=== PATIENT | female | born 1985 | race Caucasian/White ===

== ENCOUNTER 2018-10-18 06:39 | Day surgery (SDC) | payer MEDICARE, MEDICAID ==
[2018-10-09 17:54] LABS: BASOPHILS % (AUTO) 0.6 % (0-1); EOSINOPHILS # (AUTO) 0.3 X10'3 (0-0.9); EOSINOPHILS % (AUTO) 3.2 % (0-6); LYMPHOCYTES # (AUTO) 2.3 X10'3 (1.1-4.8); LYMPHOCYTES % (AUTO) 27.1 % (21-51); MEAN CORPUSCULAR HEMOGLOBIN 30.5 PG (27.0-31.0); MEAN CORPUSCULAR HGB CONC 34.2 g/dL (33.0-36.5); MEAN CORPUSCULAR VOLUME 89.1 FL (78-98); MEAN PLATELET VOLUME 7.7 FL (7.4-10.4); MONOCYTES # (AUTO) 0.5 X10'3 (0-0.9); MONOCYTES % (AUTO) 5.9 % (2-12); NEUTROPHILS # (AUTO) 5.4 X10'3 (1.8-7.7); NEUTROPHILS % (AUTO) 63.2 % (42-75); PRE OP HEMATOCRIT 39.6 % (35.0-45.0); PRE OP HEMOGLOBIN 13.5 g/dL (12.0-16.0); PRE OP PLATELET COUNT 345 X10'3 (140-440); RED BLOOD COUNT 4.44 X10'6 (4.20-5.60); RED CELL DISTRIBUTION WIDTH 13.5 % (11.5-14.5)
[2018-10-09 18:05] LABS: ALBUMIN/GLOBULIN RATIO 1.1 (1.1-1.5); ALKALINE PHOSPHATASE 65 IU/L (46-116); BLOOD UREA NITROGEN 16 MG/DL (7-18); BUN/CREATININE RATIO 16.5 (6.6-38.0); CALCIUM 9.2 MG/DL (8.5-10.1); CHLORIDE 103 MMOL/L (99-107); CREATININE 0.97 MG/DL (0.40-0.90); PRE OP ALT 42 U/L (30-65); PRE OP ANION GAP 6 (8-16); PRE OP AST 24 U/L (10-37); PRE OP BILIRUB, TOTAL 0.3 MG/DL (0.0-1.0); PRE OP GLUCOSE 90 MG/DL (70-104); PRE OP POTASSIUM 3.5 MMOL/L (3.4-5.1); PRE OP SODIUM 139 MMOL/L (135-145); TOTAL CARBON DIOXIDE 30.4 MMOL/L (24-32); TOTAL PROTEIN 7.8 G/DL (6.4-8.2); eGFR 67 ML/MIN
[2018-10-18] VITALS (9 sets, daily range): BP systolic 111–143; BP diastolic 69–97
[~2018-10-18] VITALS: Ht 172.7 cm; Wt 143.5 kg
[~2018-10-18 06:39] MED LIST: ACET-75 PO; BUPIVAcaine/PF 2.5mg/ml (0.25%) 10ml vial ONE; ESCI20TA PO; MAGN400C PO; POTASSIUM PO; ceFAZolin 2gm in dextrose, iso 100 ML IV ONE; famotidine 20mg tablet PO ONE; ringers solution, lacted 1,000 ML IV SCH
[2018-10-18] MEDS ORDERED: LIDOcaine 0.5% (5mg/ml) 50ml vial ONE (07:25)
[2018-10-18] MEDS ORDERED: midazolam 2 mg/2 ml injection ONE ×2 (08:11→08:18)
[2018-10-18] MEDS ORDERED: fentaNYL/PF 50MCG/1 ML 2ML syringe ONE (08:11)
[2018-10-18] MEDS ORDERED: ringers solution, lacted 1,000 ML IV SCH (08:38)
[2018-10-18] MEDS ORDERED: meperidine/PF 25mg/ml syringe IV PRN ×3 (08:40)
[2018-10-18] MEDS ORDERED: morphine 4 MG/ML inj SYRINge IV PRN ×2 (08:40)
[2018-10-18] MEDS ORDERED: ondansetron/PF 4mg/2ml inj IV PRN (08:40)
[2018-10-18] MEDS ORDERED: proCHLORperazine 10 MG/2 ml inj IV PRN (08:40)
--- NOTE | 2018-10-18 08:40 | NUR ---
Received from OR via BED, accompanied by Anesthesiologist DR GOEL and report given by Anesthesiolgist. PATIENT A&OX4, DENIES PAIN, V/S WNL, NEUROVASCULAR CHECKS INTACT, 20G PIV LUE, SCD ON, DRESSING TO RIGHT WRIST CDI ELEVATED WITH ICEBAG APPLIED.
[2018-10-18] MEDS ORDERED: ketorolac trometh. 30mg/ml inj. ONE (08:49)
[2018-10-18] MEDS ORDERED: propofol inj 20 ML IV ONE (08:49)
--- NOTE | 2018-10-18 09:50 | NUR ---
PATIENT A&OX4, DENIES PAIN, V/S WNL, NEUROVASCULAR CHECKS INTACT, 20G PIV LUE D/C, SCD OFF, DRESSING TO RIGHT WRIST CDI ELEVATED WITH ICEBAG APPLIED. I HAVE REVIEWED D/C INSTRUCTIONS WITH PATIENT AND FAMILY AND THEY HAVE VERBALIZED UNDERSTANDING. PATIENT D/C HOME WITH ALL BELONGINGS AND FAMILY GAVE TRANSPORT HOME.
== END 2018-10-18 09:50 | disposition home or self-care (01) ==
LOC: PAS 06:39
PROVIDERS: ATTEND Orthopaedic Surgery Hand Surgery
DX: G56.01 Carpal tunnel syndrome, right upper limb (principal); Z79.899 Other long term (current) drug therapy; Z88.8 Allergy status to other drugs, medicaments and biological substances; Z98.51 Tubal ligation status; Z98.890 Other specified postprocedural states; F17.210 Nicotine dependence, cigarettes, uncomplicated; F43.10 Post-traumatic stress disorder, unspecified
CPT/HCPCS: 29848; 36415; 80053; 85025; J0690; J1885; J2001; J2250; J2704; J3010; J3490; A6449; A7000; J7120

== ENCOUNTER 2020-10-13 08:08 | Day surgery (SDC) | payer MEDICARE, MEDICAID ==
[2020-10-06 14:48] LABS: CLARITY,URINE SLIGHTLY CLOUDY (Clear); COLOR,URINE YELLOW (Yellow); GLUCOSE, URINE NEGATIVE (Neg); KETONES,URINE NEGATIVE (Neg); LEUKOCYTE ESTERASE ,URINE SMALL (Neg); NITRITES, URINE NEGATIVE (Neg); OCCULT BLOOD,URINE NEGATIVE (Neg); PH,URINE 6.5 (4.8-8.0); PROTEIN,URINE NEGATIVE (Neg); UROBILINOGEN,URINE 0.2 E.U/dL (0.2-1.0)
[2020-10-06 14:53] LABS: BASOPHILS # (AUTO) 0.1 X10'3 (0-0.2); BASOPHILS % (AUTO) 0.8 % (0-1); EOSINOPHILS # (AUTO) 0.3 X10'3 (0-0.9); EOSINOPHILS % (AUTO) 3.4 % (0-6); LYMPHOCYTES # (AUTO) 2.3 X10'3 (1.1-4.8); LYMPHOCYTES % (AUTO) 28.3 % (21-51); MEAN CORPUSCULAR HEMOGLOBIN 30.2 PG (27.0-31.0); MEAN CORPUSCULAR HGB CONC 33.4 g/dL (33.0-36.5); MEAN CORPUSCULAR VOLUME 90.3 FL (78-98); MEAN PLATELET VOLUME 7.6 FL (7.4-10.4); MONOCYTES # (AUTO) 0.5 X10'3 (0-0.9); MONOCYTES % (AUTO) 6.6 % (2-12); NEUTROPHILS % (AUTO) 60.9 % (42-75); PRE OP HEMOGLOBIN 13.7 g/dL (12.0-16.0); PRE OP PLATELET COUNT 299 X10'3 (140-440); RED BLOOD COUNT 4.53 X10'6 (4.20-5.60)
[2020-10-06 14:55] LABS: UA COLLECTION TYPE CLN CATCH MIDSTREAM
[2020-10-06 14:57] LABS: BACTERIA,URINE FEW /HPF (Neg); MUCUS STRANDS MANY /LPF (Neg); RBC,URINE NONE SEEN /HPF (0-2); SQUAMOUS EPITHELIAL CELL,UR MANY /LPF (FEW)
[2020-10-06 14:59] LABS: ALBUMIN 3.6 G/DL (3.4-5.0); ALBUMIN/GLOBULIN RATIO 0.9 (1.1-1.5); ALKALINE PHOSPHATASE 72 IU/L (46-116); BLOOD UREA NITROGEN 14 MG/DL (7-18); BUN/CREATININE RATIO 14.9 (6.6-38.0); CALCIUM 9.2 MG/DL (8.5-10.1); CHLORIDE 106 MMOL/L (99-107); CREATININE 0.94 MG/DL (0.40-0.90); PRE OP ALT 48 U/L (30-65); PRE OP ANION GAP 8 (8-16); PRE OP AST 27 U/L (10-37); PRE OP BILIRUB, TOTAL 0.2 MG/DL (0.0-1.0); PRE OP GLUCOSE 128 MG/DL (70-104); PRE OP SODIUM 142 MMOL/L (135-145); TOTAL CARBON DIOXIDE 28.4 MMOL/L (24-32); TOTAL PROTEIN 7.4 G/DL (6.4-8.2); eGFR 68 ML/MIN
[~2020-10-13] VITALS: Ht 172.7 cm; Wt 153.0 kg
[2020-10-13] VITALS (13 sets, daily range): BP systolic 108–153; BP diastolic 69–98
[~2020-10-13 08:08] MED LIST changes: -ACET-75 PO; -BUPIVAcaine/PF 2.5mg/ml (0.25%) 10ml vial ONE; +LISI10TA27 PO; -MAGN400C PO; +MELO-100 PO; -POTASSIUM PO; +albuterol 2.5 MG/3 ML nebule NEB ONE; -ceFAZolin 2gm in dextrose, iso 100 ML IV ONE; +cefazolin/dext.iso 2gm/100ml IV ONE
[2020-10-13] MEDS ORDERED: morphine 2 MG/ML inj. syringe IV PRN ×2 (09:40→14:10)
[2020-10-13] MEDS ORDERED: meperidine/PF 25mg/ml syringe IV PRN ×4 (09:40→14:10)
[2020-10-13] MEDS ORDERED: proCHLORperazine 10 MG/2 ml inj IV PRN ×2 (09:40→14:10)
[2020-10-13] MEDS ORDERED: ringers solution, lacted 1,000 ML IV SCH ×2 (09:40→14:10)
[2020-10-13] MEDS ORDERED: ondansetron/PF 4mg/2ml inj IV PRN ×2 (09:40→14:10)
[2020-10-13] MEDS ORDERED: morphine 4 MG/ML inj SYRINge IV PRN ×2 (09:40→14:10)
[2020-10-13] MEDS ORDERED: BUPIVAcaine/PF 2.5mg/ml (0.25%) 10ml vial ONE (11:44)
[2020-10-13] MEDS ORDERED: sevoflurane 250ml liquid IH ONE (12:07)
[2020-10-13] MEDS ORDERED: fentaNYL /PF 50mcg/ml 5ml ampule ONE (12:11)
[2020-10-13] MEDS ORDERED: midazolam 1 mg/ML 2ml injection ONE (12:16)
[2020-10-13] MEDS ORDERED: ceFAZolin 1000mg inj ONE (12:30)
[2020-10-13] MEDS ORDERED: 0.9 % SODIUM CHLORIDE 10 ML VIAL ONE (12:48)
[2020-10-13] MEDS ORDERED: rocuronium 10mg/ml inj IV ONE ×2 (12:48→12:58)
[2020-10-13] MEDS ORDERED: LIDOcaine 2% (20mg/ml) 5ml vial ONE (12:48)
[2020-10-13] MEDS ORDERED: ePHEDrine 50MG/ML INJ. ONE (12:48)
[2020-10-13] MEDS ORDERED: propofol inj 20 ML IV ONE ×2 (12:48)
[2020-10-13] MEDS ORDERED: labetalol 20mg/4ml (5mg/ml) syringe IV ONE (13:17)
[2020-10-13] MEDS ORDERED: BUPIVACAINE liposomal/PF 13.3 MG/ML vial IM ONE (13:24)
[2020-10-13] MEDS ORDERED: BUPIVAcaine/PF 2.5 mg/ml (0.25%) 30ml vial ONE (13:24)
[2020-10-13] MEDS ORDERED: sugammadex 200mg/2ml injection IV ONE (13:25)
[2020-10-13] MEDS ORDERED: ondansetron/PF 4mg/2ml inj ONE (13:28)
[2020-10-13] MEDS ORDERED: dexamethasone sod phosphate 4mg/ml inj. ONE (13:28)
--- NOTE | 2020-10-13 13:57 | NUR ---
Received from OR via adriana, accompanied by Anesthesiologist Noah and report given by Anesthesiolgist. VS WNL, mask to 10L sats 99%, pt not yet responding to questions. Abdomen with 4 lap sites dermabonded. IVF LR at 100cc/hr to 20G left hand.
[2020-10-13] MEDS ORDERED: labetalol 20mg/4ml (5mg/ml) syringe IV PRN (14:10)
[2020-10-13] MEDS ORDERED: HYDROmorphone/PF 0.2 MG/ML SYRINGE IV PRN ×2 (14:10)
[2020-10-13] MEDS ORDERED: ketorolac trometh. 30mg/ml inj. IV ONE (14:10)
[2020-10-13] MEDS ORDERED: acetaminophen 1,000mg/100ml IV 100 ML IV PRN (14:10)
[2020-10-13] MEDS ORDERED: hydrALAZINE 20mg/ml inj. IV PRN (14:10)
[2020-10-13] MEDS ORDERED: oxyCODONE/APAP 5-325mg tablet PO ONE (15:15)
--- NOTE | 2020-10-13 16:17 | NUR ---
Pt discharged to vehicle by wheelchair without incident. IV DC'd, all belongings returned to patient including cell phone and ziplock of rings. Pt states she has all her belongings upon exit. Lap sites remain CDI and open to air. Pain remains tolerable at 4/10. Mother has picked up pain meds from pharmacy, pt and mother both understand DC isntructions including the need for frequent ambulation.
== END 2020-10-13 16:17 | disposition home or self-care (01) ==
LOC: PAS 08:08
PROVIDERS: ATTEND Surgery
DX: K43.6 Other and unspecified ventral hernia with obstruction, without gangrene (principal); Z20.822 Contact with and (suspected) exposure to COVID-19; F32.9 Major depressive disorder, single episode, unspecified; F43.10 Post-traumatic stress disorder, unspecified; E66.01 Morbid (severe) obesity due to excess calories; Z68.43 Body mass index [BMI] 50.0-59.9, adult; D64.9 Anemia, unspecified; I10 Essential (primary) hypertension; F17.210 Nicotine dependence, cigarettes, uncomplicated; G43.909 Migraine, unspecified, not intractable, without status migrainosus; F41.9 Anxiety disorder, unspecified; F41.0 Panic disorder [episodic paroxysmal anxiety]; Z88.8 Allergy status to other drugs, medicaments and biological substances; Z87.01 Personal history of pneumonia (recurrent); Z98.890 Other specified postprocedural states; Z79.899 Other long term (current) drug therapy; Z98.51 Tubal ligation status
CPT/HCPCS: 36415; 49653; 64488; 80053; 81001; 82948; 85025; C1758; C1781; C9290; C9399; J0131; J0690; J1100; J1170; J1885; J2001; J2175; J2250; J2405; J2704; J3010; J3490; J7120; U0003; U0005; A4215; A4618